=== PATIENT | female | born 1980 | race Caucasian/White ===

== ENCOUNTER → 2016-06-13 | Day surgery (SDC) | payer OTHER ==
[2016-06-13 08:33] LABS: HCT 42.3 % (37.0-47.0); HGB 14.2 g/dl (12.5-16.0); MCH 28.9 pg (25.0-31.0); MCHC 33.6 g/dL (32.0-36.0); MPV 10.1 fL (6.0-9.5); RBC 4.92 M/uL (4.20-5.40); RDW 14.5 % (11.5-14.0); WBC 11.5 K/uL (4.0-10.5)
[2016-06-13 08:45] LABS: PROTHROMBIN TIME 12.8 SECONDS (11.7-14.0)
[2016-06-13 08:46] LABS: PTT 30.4 SECONDS (23.2-31.4)
[2016-06-13 08:57] LABS: ALBUMIN 3.9 g/dL (3.5-5.0); BILIRUBIN - TOTAL 0.2 mg/dL (0.1-1.0); CREATININE 0.7 mg/dL (0.5-1.0); GLOBULIN (CALCULATION) 3.1 g/dL (2.2-4.2); POTASSIUM 4.1 mmol/L (3.5-5.1)
[2016-06-13 09:15] LABS: TSH (THYROID STIM HORMONE) 2.97 uIU/mL (0.270-4.200)
[2016-06-13 09:17] LABS: FOLIC ACID (SERUM) 13.5 ng/mL (4.4-31.0)
[2016-06-13 09:30] LABS: VITAMIN D (25-OH) 15.91 ng/mL
== END | disposition home or self-care (01) ==
LOC: FAS 08:17
PROVIDERS: Surgery
DX: K29.50 Unspecified chronic gastritis without bleeding (principal); K20.9 Esophagitis, unspecified; J42 Unspecified chronic bronchitis; E66.01 Morbid (severe) obesity due to excess calories; Z88.0 Allergy status to penicillin; Z79.899 Other long term (current) drug therapy; Z90.49 Acquired absence of other specified parts of digestive tract; Z68.43 Body mass index [BMI] 50.0-59.9, adult
CPT/HCPCS: 36415; 80053; 80061; 82306; 82607; 82728; 82746; 83036; 83540; 83550; 84425; 84443; 85610; 85730; 88305; J2704

== ENCOUNTER 2016-08-15 08:15 | Inpatient (IN) | payer OTHER ==
[2016-08-13 11:53] LABS: HCT 41.7 % (37.0-47.0); MCHC 33.6 g/dL (32.0-36.0); MCV 86.3 fL (78.0-100.0); MPV 9.6 fL (6.0-9.5); RBC 4.83 M/uL (4.20-5.40); RDW 14.5 % (11.5-14.0); WBC 9.8 K/uL (4.0-10.5)
[2016-08-13 12:06] LABS: CREATININE 0.7 mg/dL (0.5-1.0); POTASSIUM 4.2 mmol/L (3.5-5.1)
[~2016-08-15] VITALS: Ht 157.5 cm; Wt 134.3 kg
[2016-08-15 11:13] LABS: BILIRUBIN NEGATIVE (NEGATIVE); BLOOD NEGATIVE Ery/uL (NEGATIVE); CLARITY CLEAR (CLEAR); COLOR YELLOW (YELLOW); GLUCOSE (U) NORMAL (NORMAL); KETONE (U) NEGATIVE (NEGATIVE); LEUKOCYTES NEGATIVE Leu/uL (NEGATIVE); NITRITE NEGATIVE (NEGATIVE); PROTEIN NEGATIVE (NEGATIVE); UROBILINOGEN 0.2 mg/dL (0.2-1.0); pH 5.5 (5.0-9.0)
[2016-08-16 05:25] LABS: HCT 38.9 % (37.0-47.0); MCH 29.1 pg (25.0-31.0); MCHC 33.4 g/dL (32.0-36.0); MPV 9.7 fL (6.0-9.5); RBC 4.47 M/uL (4.20-5.40); RDW 14.1 % (11.5-14.0); WBC 14.3 K/uL (4.0-10.5)
[2016-08-16 05:40] LABS: CREATININE 0.6 mg/dL (0.5-1.0); POTASSIUM 4.4 mmol/L (3.5-5.1)
== END 2016-08-18 14:30 | disposition home or self-care (01) | DRG 621 ==
LOC: FMS 08:15 → FTCU 11:37
PROVIDERS: ADMIT Surgery
PROC: 0DB64Z3 Excision of Stomach, Percutaneous Endoscopic Approach, Vertical (ICD-10-PCS; principal; 2016-08-15 08:15)
PROC: 0DJ08ZZ Inspection of Upper Intestinal Tract, Via Natural or Artificial Opening Endoscopic (ICD-10-PCS; 2016-08-15 08:15)
DX: E66.01 Morbid (severe) obesity due to excess calories (principal); E55.9 Vitamin D deficiency, unspecified; Z68.43 Body mass index [BMI] 50.0-59.9, adult; G47.33 Obstructive sleep apnea (adult) (pediatric); D64.9 Anemia, unspecified; M51.36 Other intervertebral disc degeneration, lumbar region; F32.9 Major depressive disorder, single episode, unspecified; F41.9 Anxiety disorder, unspecified; Z88.0 Allergy status to penicillin
CPT/HCPCS: 36415; 74000; 74240; 80048; 81003; 82150; 88307; 94010; J0131; J0690; J1100; J1170; J1453; J1885; J2405; J2704; J2710; J3010; J3411; J3475